=== PATIENT | male | born 1970 | race Caucasian/White ===

== ENCOUNTER 2021-11-28 23:31 | Outpatient (CLI) | payer BC, SELFPAY | END 2021-11-28 23:32 | disposition home or self-care (01) | LOC: AMB 12-01 17:13 | PROVIDERS: Visit Provider Internal Medicine | DX: F10.129 Alcohol abuse with intoxication, unspecified (principal); S09.90XA Unspecified injury of head, initial encounter; Y04.2XXA Assault by strike against or bumped into by another person, initial encounter; Y92.9 Unspecified place or not applicable ==